=== PATIENT | female | born 1945 | race Caucasian/White ===

== ENCOUNTER 2018-05-18 05:14 | Day surgery (SDC) | payer BC ==
[2018-05-17 10:15] VITALS: BMI 20.1
[2018-05-18] MEDS ORDERED: LIDOCAINE HCL/PF 2% SDV 5ML VIAL ONE (12:27)
[2018-05-18] MEDS ORDERED: BUPIVACAINE HCL/PF 0.5% (5MG/ML) 10 ML VIAL ONE (12:31)
--- NOTE | 2018-05-18 12:46 | HP ---
History & Physical Update - History History: No Change - Physical Physical: No Change - Assessment Assessment: No Change - Plan Plan: No Change (no change since visit on 05/13/18)
[2018-05-18] MEDS ORDERED: ceFAZolin SODIUM 1 GM VIAL IVPB ONE (13:20)
[2018-05-18] MEDS ORDERED: BUPIVACAINE HCL/PF 0.5% (5MG/ML) 10 ML VIAL IJ ONE (13:46)
[2018-05-18] MEDS ORDERED: ESMOLOL HCL 200,000 MCG/20 ML VIAL ONE (14:00)
[2018-05-18] MEDS ORDERED: NEOSTIGMINE METHYLSULFATE 0.5 MG/ML - 10 ML MDV ONE (14:02)
[2018-05-18] MEDS ORDERED: GLYCOPYRROLATE 0.2 MG/1 ML VIAL ONE (14:02)
--- NOTE | 2018-05-18 14:19 | OP ---
Operative Note - Note: Operative Date: 05/18/18 Pre-Operative Diagnosis: biliary colic Operation: laparoscopic cholecystectomy Findings: chronic cholecystitis Post-Operative Diagnosis: Same as Pre-op Surgeon: Piter Villegas Mica Miner: Amada Valdez Anesthesia: General Specimens Removed: Gall bladder Estimated Blood Loss (mls): 10 Operative Report Dictated: Yes
--- NOTE | 2018-05-18 14:37 | SURG ---
Surgery Broadcast Correspondent Note Broadcast Correspondent: Amada Valdez PA-C Date of Service: 05/18/18 Diagnosis: biliary colic Procedure: laparoscopic cholecystectomy I was present for the entirety of the operative procedure. For further detail, please refer to operative report. Visit type - Case Type Case Type: Scheduled - Emergency Emergency Visit: No - New patient This patient is new to me today: Yes Date on this admission: 05/18/18
[2018-05-18] MEDS ORDERED: oxyCODONE HCL 5 MG TABLET PO PRN ×2 (14:48)
[2018-05-18] MEDS ORDERED: ONDANSETRON 4 MG/2 ML VIAL IVPUSH PRN (14:48)
[2018-05-18] MEDS ORDERED: ACETAMINOPHEN 1000 MG/100 ML VIAL (NON FORMULARY) IVPB ONE (14:50)
[2018-05-18] MEDS ORDERED: LACTATED RINGERS SOLUTION 1,000 ML IV SCH (15:00)
[2018-05-18] MEDS ORDERED: KETOROLAC TROMETHAMINE 30 MG/1 ML VIAL ONE (17:15)
[2018-05-18] MEDS ORDERED: KETOROLAC TROMETHAMINE 30 MG/1 ML VIAL IM ONE (17:24)
[2018-05-18 18:56] VITALS: BP 97/52; PULSE 90; TEMP 98.4
--- NOTE | 2018-05-19 09:08 | OP ---
DATE OF OPERATION: 05/18/2018 PREOPERATIVE DIAGNOSIS: 1. Biliary colic. 2. Cholelithiasis. POSTOPERATIVE DIAGNOSIS: Chronic cholecystitis. PROCEDURE: Laparoscopic cholecystectomy. SURGEON: Piter Villegas MD WASTE SALVAGER: ROBIN Boswell SPECIMENS: Gallbladder. COMPLICATIONS: None. BLEEDING: Minimal. INDICATIONS: This is a 73-year-old female who presents with postprandial right upper quadrant pain, was evaluated as an outpatient with an ultrasound revealing evidence of multiple gallstones and thick wall of the gallbladder for which she was referred for surgical evaluation. The risks and benefits were discussed and alternative treatment options were discussed with the patient who agreed to proceed with laparoscopic cholecystectomy. DESCRIPTION OF PROCEDURE: In the operating room she was placed in the supine position. After the induction of general anesthesia, she was prepped and draped in usual sterile fashion. The operation was begun. Through a periumbilical incision performed with a scalpel and a standard Víctor approach was used to enter the peritoneal cavity. A 12-mm port was placed in this incision and insufflation of pressure to 15 mmHg was accomplished. Next, under direct vision, three 5-mm ports were introduced and 1 in the epigastrium and 2 in the right upper quadrant. The patient was positioned in the reverse Trendelenburg position. The gallbladder was then identified, and was retracted superiorly. Multiple adhesions to the gallbladder were carefully taken down using Endoshears as well as blunt dissection with a [place] dissector. Once the infundibular region of the gallbladder was exposed, it was retracted laterally, and the gallbladder retracted superiorly. The hilar region of the gallbladder was then dissected. The cystic artery appeared to be draping anterior over the cystic duct. This required first attention be directed towards the cystic artery which was superficially dissected. The Calot node was carefully moved out of the way, and the cystic artery was circumferentially dissected with a [place] dissector. It was then doubly ligated with Endoclips and divided with Endoshears. At this point, the cystic duct could be visualized. It was dissected circumferentially. Care was taken to expose the cystic duct/common bile duct junction, and the critical view of safety was clearly demonstrated. At this point, the cystic duct was then doubly ligated with Endoclips and divided with Endoshears. The gallbladder was then dissected off the liver bed with use of hook dissector. Care was taken to avoid injury to the liver bed or any other adjacent structures. Appropriate hemostasis was achieved. Once the gallbladder was completely free from the liver bed, it was placed in an EndoCatch bag and removed through the umbilical port. Final check for hemostasis was performed. The right upper quadrant was irrigated and suctioned appropriately. The fascia at the umbilical port was then closed with 0 Vicryl sutures. The skin at all ports sizes closed with 4-0 Monocryl. Dermabond was applied. The patient returned to the recovery room awake and alert, in stable condition. She tolerated the procedure well. Abimael [id number]
--- NOTE | 2018-05-20 11:49 | PATH ---
Surgical Pathology Report Patient Name: ZAKIA BRAUN [facility]. Rec. #: [id number] /Age/Gender: 1945 (Age: 73) / F Account: [id number] Location: [facility] SURGICAL Taken: 05/18/2018 Received: 05/19/2018 Reported: 05/20/2018 Physicians: Piter Villegas M.D. Specimen(s) Received GALLBLADDER Clinical History Cholecystitis Final Diagnosis GALLBLADDER, CHOLECYSTECTOMY: CHRONIC CHOLECYSTITIS, CHOLESTEROLOSIS, AND CHOLELITHIASIS. Electronically Signed Niels Parnell M.D. Gross Description Received in formalin, labeled "gallbladder," is a 7.0 x 2.1 x 2.0 cm. gallbladder with a 0.2 cm. in length portion of cystic duct attached. The outer surface is purcell-walsh with a focal defect and varies from smooth to shaggy. The lumen contains green, tenacious bile as well as 6 brown, irregular choleliths ranging from 0.7-1.5 cm in greatest dimension. The mucosa is green with gold cholesterol stippling and focal erosions. The wall of the gallbladder averages 0.1 cm. in thickness. Funding Analyst sections are submitted in one cassette. 05/19/201805/19/2018
== END 2018-05-18 18:55 | disposition home or self-care (01) ==
LOC: JASU-SURG 05:14
PROVIDERS: ATTEND Surgery
PROC: 0FT44ZZ Resection of Gallbladder, Percutaneous Endoscopic Approach (ICD-10-PCS; principal; 2018-05-18 13:00)
DX: K81.1 Chronic cholecystitis (principal)
CPT/HCPCS: 88304-TC; 94760; J0131

== ENCOUNTER 2020-08-15 03:49 | Observation (INO) | payer BC, OTHER ==
[2020-08-15 05:29] LABS: BASO % 0.9 % (0-2.0); EOS % 1.4 % (0-4.5); HEMATOCRIT 39.3 % (32.4-45.2); LYMPH % 22.1 % (8-40); MCH 28.6 pg (25.7-33.7); MCHC 33.1 g/dl (32.0-36.0); MEAN CELL VOLUME 86.3 fl (80-96); MEAN PLT VOLUME 7.2 fl (7.5-11.1); MONO % 8.4 % (3.8-10.2); NEUT % 67.2 % (42.8-82.8); PLATELET COUNT 335 K/MM3 (134-434); RBC 4.55 M/mm3 (3.60-5.2); WHITE BLOOD COUNT 8.3 K/mm3 (4.0-10.0)
[2020-08-15 05:45] LABS: CHLORIDE 106 mmol/L (98-107); POTASSIUM 3.9 mmol/L (3.5-5.1); SODIUM 142 mmol/L (136-145)
[2020-08-15 05:47] LABS: CALCIUM 9.4 mg/dL (8.5-10.1)
[2020-08-15 05:48] LABS: ALBUMIN 3.7 g/dl (3.4-5.0); ANION GAP 7 MMOL/L (8-16); BLOOD UREA NITROGEN 11.8 mg/dL (7-18); CO2 29 mmol/L (21-32); GLUCOSE,RANDOM 118 mg/dL (74-106); INR 1.02 (0.83-1.09); PROTHROMBIN TIME (PATIENT) 12.5 SEC (9.7-13.0)
[2020-08-15 05:50] LABS: ACTIVATED PTT 35.2 SECONDS (25.2-36.5)
[2020-08-15 05:51] LABS: CREATININE 0.5 mg/dL (0.55-1.3); SGOT/AST 20 U/L (15-37); SGPT/ALT 16 U/L (13-61)
[2020-08-15 05:53] LABS: TOT PROT 7.6 g/dl (6.4-8.2)
[2020-08-15 05:54] LABS: ALK PHOS 151 U/L (45-117)
[2020-08-15] MEDS ORDERED: PIPERACILLIN/TAZOB 4.5 GM 4.5 GM in DEXTROSE 5%-WATER 100 ML IVPB ONE (06:58)
[2020-08-15] MEDS ORDERED: PIPERACILLIN/TAZOB 4.5 GM 4.5 GM/100 ML BAG IVPB ONE (07:02)
[2020-08-15] MEDS ORDERED: VANCOMYCIN 1 GM in D5W (PRE-DOCKED) 1,000 MG/250 ML IVPB ONE (07:15)
[2020-08-15] MEDS ORDERED: VANCOMYCIN 1 GRAM (PRE-DOCKED) 1,000 MG/250 ML BAG IVPB ONE (07:27)
[2020-08-15] MEDS ORDERED: ACETAMINOPHEN 1000 MG/100 ML VIAL (NON FORMULARY) IVPB ONE (07:34)
[2020-08-15] MEDS ORDERED: MAG HYDROX/AL HYDROX/SIMETH 30 ML UNIT-DOSE CUP PO ONE (07:34)
[2020-08-15] MEDS ORDERED: ACETAMINOPHEN INJECTION 100 ML IVPB ONE (07:36)
[2020-08-15 08:09] LABS: BILIRUBIN,TOTAL 0.5 mg/dL (0.2-1)
[2020-08-15] MEDS ORDERED: diphenhydrAMINE HCL 25 MG CAPSULE (FP) PO ONE ×2 (08:57→08:58)
[2020-08-15] MEDS ORDERED: PIPERACILLIN/TAZOB 4.5 GM 4.5 GM in DEXTROSE 5%-WATER 100 ML IVPB SCH ×2 (10:00→16:00)
[2020-08-15] MEDS ORDERED: guaiFENesin 200 MG/10 ML 10 ML UNIT-DOSE CUPS PO PRN (10:43)
[2020-08-15] MEDS ORDERED: VANCOMYCIN 750 MG in DEXTROSE 5%-WATER - 250 ML IVPB ONE (19:00)
[2020-08-15] MEDS ORDERED: VANCOMYCIN 750 MG in DEXTROSE 5%-WATER - 150 ML IVPB SCH (19:00)
[2020-08-15] MEDS ORDERED: MELATONIN 5 MG TABLETS PO PRN (20:58)
[2020-08-16 08:12] LABS: HEMATOCRIT 37.2 % (32.4-45.2); HEMOGLOBIN 12.2 GM/dL (10.7-15.3); MCH 28.5 pg (25.7-33.7); MCHC 32.8 g/dl (32.0-36.0); MEAN CELL VOLUME 86.9 fl (80-96); MEAN PLT VOLUME 7.6 fl (7.5-11.1); PLATELET COUNT 284 K/MM3 (134-434); RBC 4.28 M/mm3 (3.60-5.2); WHITE BLOOD COUNT 6.7 K/mm3 (4.0-10.0)
[2020-08-16 09:36] LABS: POTASSIUM 4.3 mmol/L (3.5-5.1)
[2020-08-16 09:43] LABS: BLOOD UREA NITROGEN 10.2 mg/dL (7-18)
[2020-08-16 09:45] LABS: ALBUMIN 3.2 g/dl (3.4-5.0)
[2020-08-16 09:47] LABS: MAGNESIUM 2.4 mg/dL (1.8-2.4)
[2020-08-16 09:48] LABS: CREATININE 0.5 mg/dL (0.55-1.3); PHOSPHOROUS 3.5 mg/dL (2.5-4.9)
[2020-08-16 09:49] LABS: BILIRUBIN,TOTAL 0.9 mg/dL (0.2-1); TOT PROT 6.5 g/dl (6.4-8.2)
[2020-08-16 11:39] VITALS: BMI 20.1
[2020-08-16 14:36] VITALS: BP 105/72; PULSE 83; TEMP 97.6
== END 2020-08-16 15:38 | disposition home or self-care (01) ==
LOC: JER 03:49 → UNDOADMOB 07:00 → JERBED 07:00 → INTOOBSV 07:00 → OBSVTOIN 07:00 → JERBED 09:30 → J8W 09:30 → JERBED 08-16 12:42
PROVIDERS: ADMIT Internal Medicine; ATTEND Internal Medicine
PROC: 3E033NZ Introduction of Analgesics, Hypnotics, Sedatives into Peripheral Vein, Percutaneous Approach (ICD-10-PCS; principal; 2020-08-16)
PROC: 3E03329 Introduction of Other Anti-infective into Peripheral Vein, Percutaneous Approach (ICD-10-PCS; 2020-08-16)
DX: J18.9 Pneumonia, unspecified organism (principal); J47.9 Bronchiectasis, uncomplicated; A31.0 Pulmonary mycobacterial infection; R04.2 Hemoptysis; Z85.3 Personal history of malignant neoplasm of breast; Z87.891 Personal history of nicotine dependence; Z91.018 Allergy to other foods; Z91.040 Latex allergy status; Z91.013 Allergy to seafood; Z88.8 Allergy status to other drugs, medicaments and biological substances
CPT/HCPCS: 36415; 71275-TC; 80053; 82550; 83735; 84100; 84443; 84484; 85025; 85027; 85610; 85730; 86850; 86900; 86901; 87116; 87206; 93005; 93010; 96365; 96375; 97116-GP; 97161-GP; 99285-25; C9803; G0378; J0131; Q9967; U0003

== ENCOUNTER 2022-06-28 13:36 | Observation (INO) | payer BC ==
[2022-06-28 13:49] VITALS: BMI 20.5
[2022-06-28] MEDS ORDERED: ACETAMINOPHEN 1000 MG/100 ML BAG IVPB ONE (14:44)
[2022-06-28] MEDS ORDERED: ACETAMINOPHEN INJECTION 100 ML IVPB ONE (14:48)
[2022-06-28 15:31] LABS: EOS % 0.4 % (0-4.5); HEMATOCRIT 42.4 % (32.4-45.2); HEMOGLOBIN 13.9 GM/dL (10.7-15.3); LYMPH % 15.4 % (8-40); MCH 28.5 pg (25.7-33.7); MCHC 32.8 g/dl (32.0-36.0); MEAN PLT VOLUME 6.9 fl (7.5-11.1); MONO % 8.3 % (3.8-10.2); NEUT % 74.9 % (42.8-82.8); PLATELET COUNT 318 10^3/uL (134-434); RBC 4.87 M/mm3 (3.60-5.2); RDW 13.5 % (11.6-15.6); WHITE BLOOD COUNT 7.3 K/mm3 (4.0-10.0)
[2022-06-28 15:37] LABS: INR 1.04 (0.83-1.09)
[2022-06-28 15:39] LABS: ACTIVATED PTT 35.4 SECONDS (25.2-36.5)
[2022-06-28 15:51] LABS: ALBUMIN 3.7 g/dl (3.4-5.0); CALCIUM 9.7 mg/dL (8.5-10.1); MAGNESIUM 2.5 mg/dL (1.8-2.4)
[2022-06-28 15:52] LABS: BLOOD UREA NITROGEN 14.1 mg/dL (7-18)
[2022-06-28 15:56] LABS: BILIRUBIN,TOTAL 0.5 mg/dL (0.2-1); CREATININE 0.5 mg/dL (0.55-1.3); TOT PROT 7.5 g/dl (6.4-8.2)
[2022-06-28] MEDS ORDERED: ENOXAPARIN NA (PORCINE) 40 MG/0.4 ML DISP.SYRIN SQ ONE (21:53)
[2022-06-28] MEDS ORDERED: MELATONIN 5 MG TABLETS ONE (21:55)
[2022-06-28] MEDS ORDERED: MELATONIN 5 MG TABLETS PO SCH (22:00)
[2022-06-28] MEDS: ALBUTEROL SO4 2.5/IPRATROPIUM 0.5 INH SOL 3 ML VIAL.NEB. NEB SCH (22:00)
[2022-06-28] MEDS: ENOXAPARIN NA (PORCINE) 40 MG/0.4 ML DISP.SYRIN SQ SCH (22:05)
[2022-06-28] MEDS ORDERED: ONDANSETRON 4 MG/2 ML VIAL IVPUSH PRN (23:23)
[2022-06-29] MEDS ORDERED: hydrOXYzine PAMOATE 25 MG CAPSULE (FP) PO ONE (02:00)
[2022-06-29] MEDS: ALBUTEROL SO4 2.5/IPRATROPIUM 0.5 INH SOL 3 ML VIAL.NEB. NEB SCH ×4 (07:40→15:12)
[2022-06-29 07:54] LABS: HEMATOCRIT 38.3 % (32.4-45.2); HEMOGLOBIN 12.6 GM/dL (10.7-15.3); MCH 28.3 pg (25.7-33.7); MCHC 32.9 g/dl (32.0-36.0); MEAN CELL VOLUME 85.8 fl (80-96); MEAN PLT VOLUME 7.3 fl (7.5-11.1); PLATELET COUNT 300 10^3/uL (134-434); RBC 4.47 M/mm3 (3.60-5.2); RDW 13.5 % (11.6-15.6)
[2022-06-29] MEDS ORDERED: IBUPROFEN 600 MG TABLET (FP) PO PRN (07:57)
[2022-06-29] MEDS ORDERED: ACETAMINOPHEN 1000 MG/100 ML BAG IVPB PRN (07:58)
[2022-06-29] MEDS ORDERED: guaiFENesin/CODEINE 10 ML UNIT-DOSE CUPS PO PRN (07:58)
[2022-06-29 08:14] LABS: ALBUMIN 3.1 g/dl (3.4-5.0); CALCIUM 8.9 mg/dL (8.5-10.1); MAGNESIUM 2.1 mg/dL (1.8-2.4)
[2022-06-29 08:17] LABS: CREATININE 0.5 mg/dL (0.55-1.3); PHOSPHOROUS 3.5 mg/dL (2.5-4.9)
[2022-06-29 08:19] LABS: BILIRUBIN,TOTAL 0.4 mg/dL (0.2-1); TOT PROT 6.2 g/dl (6.4-8.2)
[2022-06-29] MEDS: ENOXAPARIN NA (PORCINE) 40 MG/0.4 ML DISP.SYRIN SQ SCH (09:22)
[2022-06-29 15:00] VITALS: BP 117/70; PULSE 70; RESP 16; TEMP 98.1
== END 2022-06-29 17:08 | disposition home or self-care (01) ==
LOC: JER 13:36 → UNDOADMOB 15:52 → INTOOBSV 15:52 → JERBED 15:52 → J4W 22:32 → JERBED 22:32 → J4W 06-29 07:56
PROVIDERS: ADMIT Internal Medicine; ATTEND Nurse Practitioner Acute Care
PROC: 3E033NZ Introduction of Analgesics, Hypnotics, Sedatives into Peripheral Vein, Percutaneous Approach (ICD-10-PCS; principal; 2022-06-29)
PROC: 3E023GC Introduction of Other Therapeutic Substance into Muscle, Percutaneous Approach (ICD-10-PCS; 2022-06-29)
PROC: 3E033NZ Introduction of Analgesics, Hypnotics, Sedatives into Peripheral Vein, Percutaneous Approach (ICD-10-PCS; 2022-06-29)
DX: C50.919 Malignant neoplasm of unspecified site of unspecified female breast (principal); Z91.018 Allergy to other foods; J47.9 Bronchiectasis, uncomplicated; Z91.040 Latex allergy status; Z88.8 Allergy status to other drugs, medicaments and biological substances; R07.9 Chest pain, unspecified; R05.9 Cough, unspecified; Z91.013 Allergy to seafood; J84.9 Interstitial pulmonary disease, unspecified; A31.0 Pulmonary mycobacterial infection
CPT/HCPCS: 0241U-QW; 36415; 71046-TC-FY; 71250-TC; 80053; 83735; 84100; 84484; 85025; 85027; 85610; 85730; 93005; 93010; 94640; 96372; 96374; 96375; 99285-25; G0378